=== PATIENT | male | born 1930 | race Asian ===

== ENCOUNTER 2017-08-08 18:48 | Emergency (ER) | payer MEDICARE ==
[~2017-08-08] VITALS: Ht 160 cm; Wt 61.7 kg
[~2017-08-08 18:48] MED LIST: AUG875 PO; AZIT500T47 PO; BEN10 PO; BEN100 PO; BENZ200C38 PO; CEP500 PO; DEXT10SY2 PO; HYDR-3078 PO; PRE20 PO; VITAMINS; [UNRECOGNIZED DRUG - CODE] PO
--- NOTE | 2017-08-08 19:41 | ER Report ---
History and Physical Time Seen By MD: 19:38 Hx. of Stated Complaint: headache, no nausea or vomiting. (CHARLES HERNANDEZ [facility]-) HPI/ROS CHIEF COMPLAINT: Headache HISTORY OF PRESENT ILLNESS: This is an 87-year-old male who presents to the emergency department with his daughter for a headache. The patient states that at about 6:00 tonight he developed a "headache", however he is stating that his headache is warm bilaterally to the temporal region. He states that he's had these in the past most recently about 5 days ago. He denies sharp stabbing pain , achiness or visual changes. Patient denies chills, sore throat, nausea, vomiting, diarrhea, chest pain or shortness of breath. REVIEW OF SYSTEMS: Constitutional: No fever, no chills. Eyes: No discharge. ENT: No sore throat. Cardiovascular: No chest pain, no palpitations. Respiratory: No cough, no shortness of breath. Gastrointestinal: No abdominal pain, no vomiting. Genitourinary: No hematuria. Musculoskeletal: No back pain. Skin: No rashes. Neurological: As above. (CHARLES HERNANDEZ 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 10/23/10 Cephalexin Monohydrate (Keflex) 500 Mg Cap, 500 MG PO BID, #20 0 Refills 10/23/10 Benazepril Hcl 10 MG TAB (Benazepril Hcl 10 MG TAB) 10 Mg Tablet, 10 MG PO, 0 Refills 10/23/10 [Vitamins] No Conflict Check, 0 Refills 10/23/10 Past Medical/Surgical History Patient has a past medical and surgical history of hypertension, colon cancer, colon resection, surgery for gastrointestinal stromal tumor. (CHARLES HERNANDEZ) Reviewed Nurses Notes: Yes (CHARLES HERNANDEZ) Hx Smoking: No Hx Substance Use Disorder: No Hx Alcohol Use: No (CHARLES HERNANDEZ) Constitutional Vital Sign - Last 24 Hours 08/08/17 08/08/17 19:02 19:43 Temp 97.6 Pulse 78 Resp 20 18 B/P (MAP) 155/56 169/81 (110) Pulse Ox 93 92 O2 Delivery Room Air Room Air (RACHEL JONES MD) Physical Exam General Appearance: The patient is alert, has no immediate need for airway protection and no signs of toxicity. Eyes: Pupils equal and round no pallor or injection. EOMs intact. ENT, ears: TMs intact and pearly lcemons, landmarks noted. Nose: Inferior turbinates pink and moist no drainage. Mouth: Mucous membranes are moist. Respiratory: There are no retractions, lungs are clear to auscultation. Cardiovascular: Regular rate and rhythm, no murmurs, clicks or rubs. Gastrointestinal: Abdomen is soft and non tender, no masses, bowel sounds normal. Neurological: Alert and oriented 4. Moving all extremities. Following all commands. No focal neuro deficits. Cranial nerves II through XII intact. Skin: Warm and dry, no rashes. Musculoskeletal: Neck is supple non tender. Extremities are nontender, nonswollen and have full range of motion. DIFFERENTIAL DIAGNOSIS: After history and physical exam differential diagnosis was considered for headache including but not limited to subarachnoid hemorrhage , migraine headache, tension headache and infectious causes such as meningitis, pharyngitis and sinusitis, temporal arteritis. (CHARLES HERNANDEZ) Medical Decision Making Data Points Laboratory Hematology Test 08/08/17 20:29 Erythrocyte Sedimentation Rate 52 mm/HOUR (0-20) Chemistry Test 08/08/17 20:29 Erythrocyte Sedimentation Rate 52 mm/HOUR (0-20) (RACHEL JONES MD) ED Course/Re-evaluation ED Course The patient was admitted to home. A history of physical were obtained. Differential diagnoses were considered. An ESR was obtained and was elevated at 52. I did review these results with the patient and his daughter, and I also told him I was concerned that he could have temporal arteritis. I did start him on 60 mg of prednisone here in the ED. I also sent a prescription with the patient's pharmacy for prednisone. Patient was instructed to follow-up tomorrow with Dr. Perez for a possible biopsy. I did instruct them to practice good hand hygiene and potentially avoid the grocery store while on the prednisone as he has had a splenectomy, until he follows up with Dr. Perez. The patient and his daughter had no other questions or concerns and were discharged home. Decision to Disposition Date: Aug 08, 2017 Decision to Disposition Time: 21:52 (CHARLES HERNANDEZ) Depart Departure Latest Vital Signs Vital Signs Date Time Temp Pulse Resp B/P (MAP) Pulse Ox O2 Delivery O2 Flow Rate FiO2 08/08/17 19:43 18 169/81 (110) 92 Room Air 08/08/17 19:02 97.6 78 (RACHEL JONES MD) Impression: Primary Impression: Headache Additional Impression: Elevated erythrocyte sedimentation rate Condition: Improved Disposition: HOME OR SELF-CARE Referrals: TAMIKA RAMIREZ MD (PCP) PERFECTO GONZALES MD New Scripts Prednisone (PREDNISONE) 20 Mg Tablet 60 MG PO DAILY for 5 Days, #15 TAB Prov: CHARLES HERNANDEZ 08/08/17 Patient Instructions: Acute Headache (ED), Temporal Arteritis (ED) Additional Instructions: Drink plenty of fluids. Get plenty of rest. Follow-up with your primary care provider as indicated. Follow-up with Dr. Perez next week for a possible biopsy of the temporal artery. Take the prednisone as directed. May return to the emergency department for any other concerns or worsening symptoms. 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
[2017-08-08] MEDS ORDERED: PRED20TA6 PO (21:57)
[2017-08-08] MEDS ORDERED: predniSONE 20 MG TAB PO ONE (22:00)
[2017-08-08 22:10] VITALS: BP 159/82
== END 2017-08-08 22:18 | disposition home or self-care (01) ==
LOC: ER 19:55
DX: R51 Headache (principal); R70.0 Elevated erythrocyte sedimentation rate
CPT/HCPCS: 36415; 85651; 99283; J7512

== ENCOUNTER 2017-10-09 00:22 | Emergency (ER) | payer MEDICARE ==
[~2017-10-09 00:22] MED LIST changes: +CETI5TAB25 PO; +FLUT16SP19 NS; +IMAT400PT PO; +MULT1TAB54 PO; +MULT9LIQ2 PO; +PRED20TA6 PO; +SENN-187 PO
--- NOTE | 2017-10-09 00:37 | ER Report ---
History and Physical Time Seen By MD: 00:36 Hx. of Stated Complaint: patient checked his blood pressure at home and it was elevated (180 systolic). patient was just taken of his blood pressure medication. HPI/ROS CHIEF COMPLAINT: Hypertension HISTORY OF PRESENT ILLNESS: 87-year-old male presents ambulatory to the ER concerned about having elevated blood pressure. Before retiring to bed. He checked his blood pressure. He noted 180s over 110 range at home. He notes no headache, no blurry vision, no nausea no vomiting, no shortness of breath or chest pain. He presented to the ER to make sure he was okay. Patient's history is significant for removal of a gastric tumor back in June 2017. He 's been following up with Dr. Zavala and Dr. Harrison. Patient is undergoing treatment with Gleevec oral chemotherapy REVIEW OF SYSTEMS: Respiratory: No cough, no dyspnea. Cardiovascular: No chest pain, no palpitations. Gastrointestinal: No vomiting, no abdominal pain. Musculoskeletal: No back pain. Allergies: Coded Allergies: aspirin (Verified Allergy, Mild, RASH, 08/08/17) Uncoded Allergies: PCN (Allergy, Unknown, UNSURE, 10/23/10) Home Meds Reported Medications Multivit &Minerals/Ferrous Fum (MULTIVITAMIN LIQUID) 9 Mg/15 Ml Liquid, 1 MISC PO DAILY 09/27/17 Sennosides/Docusate Sodium (STOOL SOFTENER TABLET) 1 Each Tablet, 1 TAB PO DAILY 08/26/17 Discontinued Reported Medications Imatinib Mesylate (GLEEVEC) 400 Mg Tab, 1 TAB PO DAILY 09/18/17 Discontinued Scripts Fluticasone Prop 50 Mcg Ns (FLONASE 50 MCG NS) 16 Gm [place].susp, 2 SPRAYS NS QDAY for 30 Days, #1 BOT 4 Refills Prov:GIAN HARRISON MD 09/27/17 Reviewed Nurses Notes: Yes Old Medical Records Reviewed: Yes Hx Smoking: No Smoking Status: Never Smoker Hx Substance Use Disorder: No Hx Alcohol Use: No Constitutional Vital Sign - Last 24 Hours 10/09/17 10/09/17 10/09/17 10/09/17 00:31 00:38 00:52 01:00 Temp 97.7 Pulse 84 74 Resp 20 15 B/P (MAP) 195/92 177/86 (116) 178/97 (124) Pulse Ox 93 90 O2 Delivery Room Air 10/09/17 10/09/17 10/09/17 10/09/17 01:07 01:30 01:37 02:00 Pulse 78 68 Resp 16 13 B/P (MAP) 143/67 (92) 153/75 (101) Pulse Ox 92 93 10/09/17 10/09/17 10/09/17 02:07 02:12 02:27 Pulse 68 74 75 Resp 15 18 11 Pulse Ox 93 93 93 Physical Exam Vital signs stable, afebrile, pulse ox normal, blood pressure mildly elevated General Appearance: The patient is alert, has no immediate need for airway protection and no current signs of toxicity. No acute distress HEENT: Pupils equal and round no injection. Oropharynx without redness or exudate, mucous. Membranes are moist Respiratory: Chest is non tender, lungs are clear to auscultation. Cardiac: regular rate and rhythm Gastrointestinal: Abdomen is soft and non tender, no masses, bowel sounds normal. Musculoskeletal: Neck: Neck is supple and non tender. Extremities have full range of motion and are non tender. No edema, no calf tenderness Skin: No rashes or lesions. DIFFERENTIAL DIAGNOSIS: After history and physical exam differential diagnosis was considered for hypertension, anxiety, adverse effect of chemotherapy Medical Decision Making Data Points Result Diagram: 10/09/17 0103 10/09/17 0103 Laboratory Hematology Test 10/09/17 01:03 Red Blood Count 5.47 M/uL (4.00-5.60) Mean Corpuscular Volume 75.1 fL (80.0-96.0) Mean Corpuscular Hemoglobin 24.0 pg (26.0-33.0) Mean Corpuscular Hemoglobin Concent 32.0 g/dL (32.0-36.0) Red Cell Distribution Width 22.1 % (11.5-14.5) Mean Platelet Volume 6.5 fL (7.2-11.1) Neutrophils (%) (Auto) 51.3 % (39.4-72.5) Lymphocytes (%) (Auto) 31.0 % (17.6-49.6) Monocytes (%) (Auto) 11.4 % (4.1-12.4) Eosinophils (%) (Auto) 3.7 % (0.4-6.7) Basophils (%) (Auto) 2.6 % (0.3-1.4) Nucleated RBC Relative Count (auto) 0.1 /100WBC Neutrophils # (Auto) 2.5 K/uL (2.0-7.4) Lymphocytes # (Auto) 1.5 K/uL (1.3-3.6) Monocytes # (Auto) 0.6 K/uL (0.3-1.0) Eosinophils # (Auto) 0.2 K/uL (0.0-0.5) Basophils # (Auto) 0.1 K/uL (0.0-0.1) Nucleated RBC Absolute Count (auto) 0.00 K/uL Peripheral Blood Smear Yes Y/N Sodium Level 138 mmol/L (137-145) Potassium Level 4.4 mmol/L (3.5-5.0) Chloride Level 104 mmol/L (98-107) Carbon Dioxide Level 24 mmol/L (22-30) Blood Urea Nitrogen 22 mg/dl (9-21) Creatinine 1.30 mg/dl (0.66-1.25) Glomerular Filtration Rate Calc 52.3 Random Glucose 92 mg/dl (75-110) Calcium Level 9.0 mg/dl (8.4-10.2) Total Bilirubin 0.3 mg/dl (0.2-1.3) Aspartate Amino Transf (AST/SGOT) 24 U/L (0-35) Alanine Aminotransferase (ALT/SGPT) 33 U/L (0-56) Alkaline Phosphatase 82 U/L (0-126) Troponin I < 0.012 ng/ml Total Protein 7.6 gm/dl (6.3-8.2) Albumin 3.9 g/dl (3.5-5.0) Chemistry Test 10/09/17 01:03 White Blood Count 4.8 k/uL (4.5-11.0) Red Blood Count 5.47 M/uL (4.00-5.60) Hemoglobin 13.1 g/dL (14.0-18.0) Hematocrit 41.1 % (42.0-52.0) Mean Corpuscular Volume 75.1 fL (80.0-96.0) Mean Corpuscular Hemoglobin 24.0 pg (26.0-33.0) Mean Corpuscular Hemoglobin Concent 32.0 g/dL (32.0-36.0) Red Cell Distribution Width 22.1 % (11.5-14.5) Platelet Count 384 K/uL (150-450) Mean Platelet Volume 6.5 fL (7.2-11.1) Neutrophils (%) (Auto) 51.3 % (39.4-72.5) Lymphocytes (%) (Auto) 31.0 % (17.6-49.6) Monocytes (%) (Auto) 11.4 % (4.1-12.4) Eosinophils (%) (Auto) 3.7 % (0.4-6.7) Basophils (%) (Auto) 2.6 % (0.3-1.4) Nucleated RBC Relative Count (auto) 0.1 /100WBC Neutrophils # (Auto) 2.5 K/uL (2.0-7.4) Lymphocytes # (Auto) 1.5 K/uL (1.3-3.6) Monocytes # (Auto) 0.6 K/uL (0.3-1.0) Eosinophils # (Auto) 0.2 K/uL (0.0-0.5) Basophils # (Auto) 0.1 K/uL (0.0-0.1) Nucleated RBC Absolute Count (auto) 0.00 K/uL Peripheral Blood Smear Yes Y/N Glomerular Filtration Rate Calc 52.3 Calcium Level 9.0 mg/dl (8.4-10.2) Total Bilirubin 0.3 mg/dl (0.2-1.3) Aspartate Amino Transf (AST/SGOT) 24 U/L (0-35) Alanine Aminotransferase (ALT/SGPT) 33 U/L (0-56) Alkaline Phosphatase 82 U/L (0-126) Troponin I < 0.012 ng/ml Total Protein 7.6 gm/dl (6.3-8.2) Albumin 3.9 g/dl (3.5-5.0) EKG/Imaging EKG Interpretation 12 lead EK Rhythm: normal sinus rhythm [place]: normal QRS: normal ST segments: normal, no evidence of ischemia or dysrhythmia Imaging X-ray: Single view portable chest x-ray was obtained. I viewed the images myself on the PACS system. My interpretation of the images is: There is infiltrate and effusion in the left chest compared to previous chest film January 2017. The radiologist interpretation had no clinically significant variation from this interpretation. ED Course/Re-evaluation ED Course Patient was minute to an examination room. H&P was done. The dental diagnoses was considered. On clinical examination. Patient has no findings. His blood pressures mildly elevated. He is medicated with Norvasc 2.5 mg by mouth. On reevaluation, his blood pressures improved. Chest x-ray shows a left pleural effusion of unclear significance. Patient have recurrence of his tumor. He's advised to follow-up with Dr. Zavala, his oncologist or Dr Harrison for CT scan of his chest and further evaluation. Decision to Disposition Date: Oct 09, 2017 Decision to Disposition Time: 02:25 Depart Departure Latest Vital Signs Vital Signs Date Time Temp Pulse Resp B/P (MAP) Pulse Ox O2 Delivery O2 Flow Rate FiO2 10/09/17 02:27 75 11 93 10/09/17 02:00 153/75 (101) 10/09/17 00:31 97.7 Room Air Impression: Primary Impression: Hypertension Additional Impressions: Pleural effusion on left GIST (gastrointestinal stromal tumor), malignant Condition: Improved Disposition: HOME OR SELF-CARE Patient Instructions: Hypertension (ED), Pleural Effusion (ED) Additional Instructions: Follow-up with Dr. Quiñonez or Dr. Harrison this week. You will need a CAT scan of your chest with dye to evaluate fluid in the left chest cavity Problem Qualifiers Primary Impression: Hypertension Hypertension type: essential hypertension Qualified Codes: I10 - Essential ( primary) hypertension Additional Impressions: GIST (gastrointestinal stromal tumor), malignant Malignant gastrointestinal stromal tumor location: stomach Qualified Codes: C49.A2 - Gastrointestinal stromal tumor of stomach WEN LESLIE DO Oct 09, 2017 00:37
[2017-10-09] MEDS ORDERED: amLODIPine BESYL(*) 2.5 MG TAB PO ONE (00:50)
--- NOTE | 2017-10-09 01:07 | EKG ---
FACILITY: [facility] - [place] PATIENT NAME: JAZZY ALDRIDGE : [id number] MR: [id number] V: [id number] EXAM DATE: ORDERING PHYSICIAN: WEN LESLIE TECHNOLOGIST: SUSHIL Test Reason : CARDIAC Blood Pressure : / mmHG Vent. Rate : 078 BPM Atrial Rate : 078 BPM P-R Int : 146 ms QRS Dur : 076 ms QT Int : 364 ms P-R-T Axes : 036 001 048 degrees QTc Int : 414 ms Normal sinus rhythm Progression of R wave consistent old ant/sep [place] vs lead placement When compared with ECG of 24-JAN-2017 16:26, Relatively unchanged Confirmed by DIMITRY GUZMÁN ([id number]) on 10/09/2017 6:50:16 AM Referred By: Confirmed By:DIMITRY GUZMÁN
--- NOTE | 2017-10-09 01:28 | RADIOLOGY IMAGING REPORT ---
FACILITY: [facility] - [place] PATIENT NAME: Carlton Zee : 1930 MR: [id number] V: [id number] EXAM DATE: ORDERING PHYSICIAN: WEN LESLIE TECHNOLOGIST: Location: [facility] Patient: Carlton Zee : 1930 Visit/Account:[id number] Date of Sevice: 10/09/2017 SINGLE AP RADIOGRAPH OF THE CHEST 10/09/2017 1:00 AM. INDICATION: Chest pain. COMPARISON: 05/01/2017. FINDINGS: There is new dense opacification of the left lower lung with probable moderate volume pleural effusio n. No pneumothorax. Right lung is well expanded and clear. Heart size is likely normal. IMPRESSION: Left base consolidation/atelectasis in moderate volume pleural effusion. Underlying infe ction is a consideration. Consider follow-up at resolution to exclude other underlying lesion. Report Dictated By: Claus Johnson MD at 10/09/2017 1:20 AM Report E-Signed By: Claus Johnson MD at 10/09/2017 1:22 AM WSN:[id number]
[2017-10-09 01:30] LABS: PLATELET COUNT, AUTOMATED 384 K/uL (150-450)
[2017-10-09 02:00] VITALS: BP 153/75
== END 2017-10-09 02:35 | disposition home or self-care (01) ==
LOC: ER 00:47
DX: I10 Essential (primary) hypertension (principal); J90 Pleural effusion, not elsewhere classified; C49.A2 Gastrointestinal stromal tumor of stomach
CPT/HCPCS: 36415; 71045; 84484; 85025; 93005; 99283; A9270; 82040; 82247; 82310; 82374; 82435; 82565; 82947; 84075; 84132; 84155; 84295; 84450; 84460; 84520

== ENCOUNTER → 2017-10-18 | Outpatient (CLI) | payer MEDICARE, OTHER ==
--- NOTE | 2017-10-18 10:32 | RADIOLOGY IMAGING REPORT ---
FACILITY: [facility] - [place] PATIENT NAME: Carlton Zee : 1930 MR: [id number] V: [id number] EXAM DATE: ORDERING PHYSICIAN: GIAN HARRISON TECHNOLOGIST: Location: [facility] - [place] Patient: Carlton Zee : 1930 Visit/Account:[id number] Date of Sevice: 10/18/2017 Exam type: CHEST PA AND LAT History: Plural Effusion Comparison: October 09, 2017. Findings: The previously noted moderate left pleural effusion is partially decreased in size. There also appea rs to be partial improvement of the left basilar airspace consolidation. There is an area of discoid atelectasis in the right lung base. No evidence of a pneumothorax or pneumomediastinum. The cardia c silhouette is normal in size. IMPRESSION: 1. Partial improvement of the left pleural effusion and left basilar airspace consolidation when com pared to October 09, 2017 Discoid atelectasis in the right lung base Report Dictated By: Daisy Salmeron MD at 10/18/2017 10:25 AM Report E-Signed By: Daisy Salmeron MD at 10/18/2017 10:28 AM WSN:[email or web address]
== END ==
LOC: RAD 09:51
PROVIDERS: ATTEND Family Medicine
DX: J90 Pleural effusion, not elsewhere classified (principal); J98.11 Atelectasis
CPT/HCPCS: 71046

== ENCOUNTER 2017-11-12 15:50 | Outpatient (RCR) | payer MEDICARE ==
[2017-08-26 14:26] VITALS: BP 144/73
[2017-08-26 15:35] LABS: PLATELET COUNT, AUTOMATED 362 K/uL (150-450)
--- NOTE | 2017-08-27 21:03 | ONCOLOGY CONSULTATION ---
EVENT DATE: August 26, 2017 CHIEF COMPLAINT/REASON FOR VISIT Mr. Zee is a very pleasant 87-year-old patient of Dr. Lundberg and Dr. 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 HISTORY OF PRESENT ILLNESS Mr. 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 This was resected in the [facility], I believe on June 26, 2017. He is recovering well from surgery. No abdominal pain. His biggest complaint today is postnasal drip and significant mucus in the back of his throat, which has been a problem for many years. 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 He is doing well at this time. Unfortunately I do not have confirmation about whether or not he received appropriate vaccinations, and we will try to confirm this. He is doing well and had already researched Gleevec adjuvantly. We discussed the pros and cons of it. In his case at 87 years of age he is very concerned about side effects. Typically speaking this is well tolerated, but we can adjust the dose if needed if he experiences side effects, such as myelosuppression or edema. After excessive discussion, he would like to move forward with this therapy for three years to prevent recurrence. PAST MEDICAL/SURGICAL HISTORY 1. Arthritis. 2. Cataracts. 3. 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 4. Partial colon resection for unclear reasons in September of 1999. Do not believe it was related to cancer. SOCIAL HISTORY The patient is and has presented with his today. He has five children and presents with one of his daughters today. No alcohol use, never smoker. Remainder of the social history is unremarkable. FAMILY HISTORY Unremarkable. No significant history of cancer. MEDICATIONS 1. Zyrtec daily. 2. Multivitamin daily. REVIEW OF SYSTEMS CONSTITUTIONAL: No fevers, chills, weight change. HEENT: No headache or vision changes, hearing changes. CARDIOVASCULAR: No chest pain, dyspnea on exertion or edema. RESPIRATORY: No shortness of breath, wheeze, cough. GASTROINTESTINAL: No nausea, vomiting, diarrhea. GENITOURINARY: No dysuria or hematuria. MUSCULOSKELETAL: No weakness or joint pain. PSYCHIATRIC: No anxiety or depression. SKIN: He does have some pruritus and rash at times. No major issue today. HEMATOLOGIC: No prior history of anemia, although his blood counts have been borderline by report. ENDOCRINE: No heat or cold intolerance. NEUROLOGIC: No deficits or other concerns. The remainder of the 14-point review of systems is otherwise negative. PHYSICAL EXAMINATION VITAL SIGNS: Blood pressure 144/73, which is unusually high for him. It is normally lower. Pulse 97, respiratory rate 16, temperature 96.6 Fahrenheit, oxygen saturation 94% on room air. Height 61.5 inches, weight 62 kg. Pain 0/10 , fatigue 7/10, which he attributes to his age. HEENT: Normocephalic, atraumatic. ABDOMEN: Soft. Well healed surgical scar. No tenderness, pain, concerning lesions. EXTREMITIES: No clubbing, cyanosis or edema. The remainder of the physical exam is otherwise unremarkable. IMPRESSION AND PLAN Mr. Zee is an extremely pleasant 87-year-old gentleman with the following: Large GIST tumor, resected, required splenectomy as well. We will have my team confirm that he received his vaccinations appropriately. He is a candidate for adjuvant Gleevec and we discussed this in detail today. After discussion, he would like to pursue this therapy. We discussed side effects in detail including, but not limited to myelosuppression, nausea, vomiting, edema. Significant edema is rare, but may require dose adjustments or discontinuation. In his state we would like to have excellent tolerability if we pursue this, and we would be quick to consider dose adjustment if appropriate. I answered all of his many questions today, as well as his family. Billing: New patient, level 4. Total time 45 minutes, counseling time 30. MTDD
--- NOTE | 2017-08-28 15:05 | Pharmacy Note ---
Pharmacy Note Date Provider Notified: Aug 28, 2017 Note: Oncology Pharmacy Note: Received a phone call from [facility] Regarding Post Splenectomy Vaccination and initiation of imatinib for GIST. Upon review of outside records from [facility], the patient received the following vaccines: 07/02/17: HiB - Hiberix 07/02/17: Pneumococcal - Prevnar 13 07/02/17: Meningococcal - Bexsero 07/02/17: Influenza-- Fluarix Patient is due for 8 week doses of vaccines and will also be starting imatinib. Imatinib is an immunosuppressant and will likely decrease the immunologic response from the vaccine. Risk of not vaccinating is much higher that the risk of not seroconverting with vaccination. Per discussion with Ayaka Villatoro, GSE MECHANIC benefits of vaccination outweighs the risk of not vaccinating. Leelee Moura, PharmD, BCOP LEELEE MOURA Aug 28, 2017 15:05
--- NOTE | 2017-09-27 15:56 | Pharmacy Note ---
Pharmacy Note Date Provider Notified: Sep 26, 2017 Note: Chemotherapy Education Note: Clinical Pharmacist was asked to chief counsel patient on oral chemotherapy medication , imatinib (Gleevec) for a gastrointestinal stromal tumor. The patient was accompanied by his daughter, Joan, and his . YAMILA Tuttle was also present for the chemoeducation. The following toxicities were reviewed with the patient and his family: Bone Marrow Suppression- Imatinib may cause myelosuppression including neutropenia, anemia, and thrombocytopenia. Discussed increased risk of infection and risk of bleeding if counts drop. Discussed that a CBC will be drawn and reviewed more frequently at the beginning and then on a monthly basis. Discussed neutropenic precautions and hand washing, avoiding sick contacts, etc. General precautions were discussed. Cardiac Toxicity- Discussed increased risk of cardiotoxicity including heart failure and LVD in those with baseline risks that are elevated. Most important symptom to watch for is SOB and fluid retention. Patient was educated on when to seek emergency attention vs. calling the cancer center. Dermatologic Toxicity - Severe skin reactions may occur, rashes involving the inside of the mouth are emergencies and patient was directed to the ED if those symptoms should occur. Rashes not involving the mucosa may still be severe, but discussed importance of notifying us if a rash should develop. Fluid retention/Edema- fluid retention and edema can be severe, causing lower extremity swelling, weight gain, and SOB. Discussed when to seek emergency attention and when to call us. Encouraged monitoring of fluid status and checking weights. Nausea/Vomiting/Diarrhea - Imatinib needs to be taken with food to minimize GI irritation and promote absorption. May cause nausea/vomiting. Discussed use of anti-emetics and also the risk of possible GI perforation. Bleeding- Discussed signs and symptoms of GI bleeding and what to look for. Risks of low platelets, anemia, and other sources of blood loss. Hepatotoxicity and Nephrotoxicity- Discussed the risk of potential toxicity to the liver and kidneys, will monitor with frequent labs. Patient and family verbalized understanding of all the risks and benefits of treatment with Imatinib. Patient and his family aware that if any future questions come up that they can call. Chemotherapy/biotherapy binder was given to the patient and YAMILA Tuttle covered the contents of the binder with the patient and his family. Questions were answered and the consent for treatment was signed. Leelee Crystal, PharmD, OP LEELEE CRYSTAL Sep 27, 2017 13:26
[2017-10-21 12:01] VITALS: BP 166/78
--- NOTE | 2017-10-22 19:17 | ONCOLOGY FOLLOW UP NOTE ---
EVENT DATE: October 21, 2017 CHIEF COMPLAINT/REASON FOR VISIT Mr. Zee is a pleasant 87-year-old patient of Dr. Lundberg, Dr. Carbajal and Dr. 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 HISTORY OF PRESENT ILLNESS Mr. Zee returns. This was resected in the [facility] on June 26, 2017. Given the size, we recommend adjuvant Gleevec for a year. This is approved by his [place] through the [facility] according to the patient and his family , but he has not received it yet. They are told that they are going to receive it today. 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 We again discussed the side effects of potential with Gleevec and he is looking forward to starting it. We could treat for one to three years, and I am now more inclined to treat for one year given the patient's age and comorbidities. He was in the ER recently and had a small pleural effusion on the chest x-ray. He was improving last week. On exam today his lung exam is perfectly normal, so I do not think we need additional imaging. His biggest complaint is insomnia , which has been an ongoing issue. PAST MEDICAL/SURGICAL HISTORY 1. Arthritis. 2. Cataracts. 3. 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 4. Partial colon resection for unclear reasons in September of 1999. Do not believe it was related to cancer. SOCIAL HISTORY The patient is and has presented with his today. He has five children and presents with one of his daughters today. No alcohol use, never smoker. Remainder of the social history is unremarkable. FAMILY HISTORY Unremarkable. No significant history of cancer. MEDICATIONS 1. Zyrtec daily. 2. Multivitamin daily. REVIEW OF SYSTEMS CONSTITUTIONAL: No fevers, chills, weight change. HEENT: No headache or vision changes, hearing changes. CARDIOVASCULAR: No chest pain, dyspnea on exertion or edema. No symptoms, although he did have a recent small pleural effusion by report. RESPIRATORY: No shortness of breath, wheeze, cough. GASTROINTESTINAL: No nausea, vomiting, diarrhea. GENITOURINARY: No dysuria or hematuria. MUSCULOSKELETAL: No weakness or joint pain. PSYCHIATRIC: No anxiety or depression. SKIN: He does have some pruritus and rash at times. No major issue today. HEMATOLOGIC: No prior history of anemia, although his blood counts have been borderline by report. ENDOCRINE: No heat or cold intolerance. NEUROLOGIC: No deficits or other concerns. The remainder of the 14-point review of systems is otherwise negative. PHYSICAL EXAMINATION VITAL SIGNS: Blood pressure 166/78, pulse 74, respiratory rate 16, temperature 96.4 Fahrenheit, oxygen saturation 92% on room air. Pain 0/10, fatigue 9/10. GENERAL: In stable condition, resting comfortably in the chair. HEENT: Normocephalic, atraumatic. CARDIOVASCULAR: Regular rate and rhythm. LUNGS: Completely clear to auscultation bilaterally. No dullness at the bases. No wheezes, crackles or rales. ABDOMEN: Soft, nontender. Well healed surgical scar. No tenderness, pain, concerning lesions. EXTREMITIES: No clubbing, cyanosis or significant edema at this time. The remainder of the physical exam unremarkable. IMPRESSION AND PLAN Mr. Zee is an extremely pleasant 87-year-old gentleman with the followin. Large GIST tumor, resected, requiring splenectomy as well. Plan to start adjuvant Gleevec soon. Plan to treat for one to three years. 2. Insomnia. Follow up with Dr. Carbajal. 3. Recent pleural effusion. His exam is normal. I think this may have been due to recovery from his extensive surgery or from an infection. It appears to be resolved now. Follow up as needed for this. I answered all of their many questions today, as well as the questions of the family. Billing: New patient, level 3. Total time 30 minutes, counseling time 20. MTDD
[2017-11-05 16:04] LABS: PLATELET COUNT, AUTOMATED 368 K/uL (150-450)
[~2017-11-12 15:50] MED LIST changes: +IMAT400T2 PO
[2017-11-12 15:54] VITALS: BP 171/71
[2017-11-12 16:03] LABS: PLATELET COUNT, AUTOMATED 307 K/uL (150-450)
== END 2017-11-21 ==
LOC: SPU 15:50
PROVIDERS: ATTEND Internal Medicine
DX: D48.1 Neoplasm of uncertain behavior of connective and other soft tissue (principal); Z90.81 Acquired absence of spleen; Z98.890 Other specified postprocedural states; I10 Essential (primary) hypertension
CPT/HCPCS: 36415; 83615; 85025; G0463; 82040; 82247; 82310; 82374; 82435; 82565; 82947; 84075; 84132; 84155; 84295; 84450; 84460; 84520; 99202; 99212

== ENCOUNTER 2017-12-18 15:22 | Outpatient (RCR) | payer MEDICARE ==
[2017-12-18 15:31] VITALS: BP 154/77
--- NOTE | 2017-12-22 18:31 | ONCOLOGY FOLLOW UP NOTE ---
EVENT DATE: December 18, 2017 CHIEF COMPLAINT/REASON FOR VISIT Mr. Zee returns to discuss his GIST tumor and intolerance of Gleevec. HISTORY OF PRESENT ILLNESS Carlton returns. He tried Gleevec for four days for his large GIST tumor, but did not tolerate it. He felt unwell. We could consider reducing the dose, however , he is adamant that he would like to observe. This is very reasonable. As a result, I do think we should get periodic imaging approximately once a year. We had an extensive discussion about the pros and cons of this decision with he and is family, and after discussion they are very comfortable with this plan. PAST MEDICAL/SURGICAL HISTORY 1. Arthritis. 2. Cataracts. 3. 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 4. Partial colon resection for unclear reasons in September of 1999. Do not believe it was related to cancer. SOCIAL HISTORY The patient is and has presented with his today. He has five children and presents with one of his daughters today. No alcohol use, never smoker. Remainder of the social history is unremarkable. REVIEW OF SYSTEMS CONSTITUTIONAL: No fevers, chills, weight change. HEENT: No headache or vision changes, hearing changes. CARDIOVASCULAR: No chest pain, dyspnea on exertion or edema. No symptoms, although he did have a recent small pleural effusion by report. RESPIRATORY: No shortness of breath, wheeze, cough. GASTROINTESTINAL: No nausea, vomiting, diarrhea. GENITOURINARY: No dysuria or hematuria. MUSCULOSKELETAL: No weakness or joint pain. PSYCHIATRIC: No anxiety or depression. SKIN: He does have some pruritus and rash at times. No major issue today. HEMATOLOGIC: No prior history of anemia, although his blood counts have been borderline by report. ENDOCRINE: No heat or cold intolerance. NEUROLOGIC: No deficits or other concerns. The remainder of the 14-point review of systems is otherwise negative. PHYSICAL EXAMINATION VITAL SIGNS: Blood pressure 154/77, pulse 81, respiratory rate 16, temperature 97.2 Fahrenheit, oxygen saturation 90% on room air. Weight 66.6 kg. Pain 0/10 , fatigue 0/10. GENERAL: Stable condition, resting comfortably in the chair. HEENT: Severe presbycusis. Unfortunately he did not have his microphone and amplifier today. ABDOMEN: Soft, nontender. No distention that is new. lesions. EXTREMITIES: No clubbing, cyanosis or edema. The remainder of the physical exam otherwise deferred or unremarkable, and time spent in counseling and coordination of care. . IMPRESSION AND PLAN Mr. Zee is a very pleasant gentleman with the following: A large gastrointestinal stromal tumor. We recommended adjuvant Gleevec therapy and he took four days of it. Unfortunately he felt generally unwell and decided to discontinue it. This is reasonable. I stressed to him that it is his decision whether or not he pursues adjuvant therapy, and he has decided that he would no longer like to do this. We will begin active surveillance and I would like to get scans approximately once a year. I answered all of their questions today. Billing: Return visit level 3. Total time 20 minutes, counseling time 15. MTDD
== END 2018-02-13 13:45 | disposition home or self-care (01) ==
LOC: ONC 15:22
PROVIDERS: ATTEND Internal Medicine
DX: C49.A0 Gastrointestinal stromal tumor, unspecified site (principal); Z90.81 Acquired absence of spleen
CPT/HCPCS: 99212

== ENCOUNTER → 2018-01-06 | Outpatient (CLI) | payer OTHER, MEDICARE ==
--- NOTE | 2018-01-06 12:31 | RADIOLOGY IMAGING REPORT ---
FACILITY: [facility] - [place] PATIENT NAME: Carlton Zee : 1930 MR: [id number] V: [id number] EXAM DATE: ORDERING PHYSICIAN: GIAN HARRISON TECHNOLOGIST: Location: [facility] - [place] Patient: Carlton Zee : 1930 Visit/Account:[id number] Date of Sevice: 01/06/2018 Exam type: CHEST PA AND LAT History: fu effusion Comparison: October 18, 2017. Findings: There has been slight decrease in the blunting of left costophrenic angle likely related to the repor tate left pleural effusion. There is also been partial improvement of the left basilar airspace conso lidation. Small amount of scarring is seen in the medial right lung base. There is no evidence of p neumothorax. The cardiac silhouette is normal in size. IMPRESSION: 1. Slight decrease in the left pleural effusion and left basilar airspace consolidation Report Dictated By: Daisy Salmeron MD at 01/06/2018 12:25 PM Report E-Signed By: Daisy Salmeron MD at 01/06/2018 12:27 PM WSN:[email or web address]
== END ==
LOC: RAD 10:40
PROVIDERS: ATTEND Family Medicine
DX: J90 Pleural effusion, not elsewhere classified (principal)
CPT/HCPCS: 71046

== ENCOUNTER → 2018-06-16 | Outpatient (CLI) | payer MEDICARE ==
--- NOTE | 2018-06-16 09:49 | RADIOLOGY IMAGING REPORT ---
FACILITY: [facility] PATIENT NAME: Carlton Zee : 1930 MR: [id number] V: [id number] EXAM DATE: ORDERING PHYSICIAN: EVERARDO MEDINA TECHNOLOGIST: Location: [facility] - [place], [place] Patient: Carlton Zee : 1930 Visit/Account:[id number] Date of Sevice: 06/16/2018 ABDOMEN COMPLETE HISTORY: ABDOMEN COMPLETE HISTORY: ADDITIONAL HISTORY: Neoplasm removed 06/26/2017. COMPARISON: None. FINDINGS: Gallbladder: Shadowing gallstones. Gallbladder wall is mildly thickened at 3.4 mm. No pericholecyst ic fluid collections. Liver: 11.4 cm. No liver lesions. Common duct: Normal, 1.4 mm diameter. Pancreas: Obscured Spleen: Postsplenectomy Right kidney: 8.9 x 4.7 x 4.8 cm in size. Subcentimeter cyst. Left Kidney: 10.7 x 4.5 x 4.0 cm in size. Subcentimeter cyst. Upper abdominal aorta and IVC: Patent. Ascites: None visualized. IMPRESSION: 1. Cholelithiasis. No evidence of cholecystitis Report Dictated By: Jan Aragon MD at 06/16/2018 9:38 AM Report E-Signed By: Jan Aragon MD at 06/16/2018 9:45 AM WSN:[email or web address]
== END ==
LOC: US 07:46
PROVIDERS: ATTEND Internal Medicine
DX: C49.4 Malignant neoplasm of connective and soft tissue of abdomen (principal); K80.80 Other cholelithiasis without obstruction
CPT/HCPCS: 76700

== ENCOUNTER 2018-07-07 10:01 | Outpatient (RCR) | payer MEDICARE ==
[2018-07-07 15:43] VITALS: BP 170/74
[2018-07-07 16:27] LABS: PLATELET COUNT, AUTOMATED 293 K/uL (150-450)
--- NOTE | 2018-07-10 19:52 | ONCOLOGY FOLLOW UP NOTE ---
EVENT DATE: July 10, 2018 CHIEF COMPLAINT Followup for GIST tumor. HISTORY OF PRESENT ILLNESS Patient is an 88-year-old male who was seen today in six-month followup for GIST. Unfortunately, he was not able to tolerate GLEEVEC and has felt much better off the medication. Most recent ultrasound of the abdomen was negative. He generally feels well. His biggest complaint today is that of constipation. He is caring for his , who has been diagnosed with Alzheimer disease, but feels he is managing fairly well with the help of his daughter. ONCOLOGY HISTORY Patient was diagnosed with a large GIST in June 2017. He underwent resection as well as splenectomy as the tumor was attached to the spleen. He had a short course of GLEEVEC, but was not able to tolerate the medication. PAST MEDICAL HISTORY 1. Large GIST, June 2017. 2. Arthritis. 3. Cataracts. SURGICAL HISTORY 1. GIST resection as well as splenectomy, June 2017. 2. Partial colon resection for unclear reasons, September 1999. FAMILY HISTORY Negative for malignancy. SOCIAL HISTORY Patient is . They have five grown children. His daughter lives close and helps with them. His has recently been diagnosed with Alzheimer disease. He does not drink alcohol and has never smoked. ALLERGIES ASPIRIN and PENICILLIN. MEDICATIONS 1. Multivitamin. 2. Stool softener. REVIEW OF SYSTEMS A 12-point review of systems is performed and is negative except as stated above. PHYSICAL EXAMINATION VITAL SIGNS: Blood pressure 170/74, pulse 76, respirations 16, temp 97.8, O2 sat 93%. GENERAL: Patient is a well-developed, well-nourished male in no acute distress. HEAD: Normocephalic, atraumatic. EYES: Sclerae anicteric. MOUTH: Moist mucous membranes. No lesions. NECK: Supple. No palpable adenopathy. LUNGS: Clear bilaterally. CARDIOVASCULAR: Heart rate regular, 76 per minute, without murmur, S3, or S4. ABDOMEN: Soft, nontender, with hypoactive bowel sounds. No organomegaly. EXTREMITIES: Mild bilateral lower extremity edema. NEUROLOGIC: Nonfocal. LABORATORIES CBC today reveals a WBC of 5.0, hemoglobin 16.9, hematocrit 50.7, platelets 293,000. CMP is within normal limits. IMPRESSION AND PLAN The patient is an 88-year-old male who was diagnosed with a large gastrointestinal stromal tumor in June 2017. Underwent resection as well as splenectomy as the tumor was attached to the spleen. Unable to take adjuvant GLEEVEC therapy. 1. Gastrointestinal stromal tumor. No signs or symptoms disease recurrence. He generally feels well. He underwent ultrasound of the abdomen on 06/16/18, which was negative for recurrent disease. 2. Constipation. Complains of constipation despite the use of stool softener. Recommended MiraLAX. 3. Follow up in six months for continued care. CBC and CMP will be done before that visit. MTDD
== END 2018-08-25 12:42 | disposition home or self-care (01) ==
LOC: ONC 10:01
PROVIDERS: ATTEND Internal Medicine
DX: C49.A0 Gastrointestinal stromal tumor, unspecified site (principal); Z90.81 Acquired absence of spleen; K59.00 Constipation, unspecified
CPT/HCPCS: 36415; 85025; G0463; 82040; 82247; 82310; 82374; 82435; 82565; 82947; 84075; 84132; 84155; 84295; 84450; 84460; 84520; 99212

== ENCOUNTER 2019-01-05 14:56 | Outpatient (RCR) | payer MEDICARE ==
[2019-01-02 08:30] LABS: PLATELET COUNT, AUTOMATED 297 K/uL (150-450)
[2019-01-02 08:56] VITALS: BP 148/90
[2019-01-05 15:10] VITALS: BP 154/78
--- NOTE | 2019-01-06 11:21 | [facility] ONCOLOGY NOTE ---
EVENT DATE: January 05, 2019 CHIEF COMPLAINT/REASON FOR VISIT Mr. Zee is a pleasant 88-year old gentleman with a history of a large GIST tumor, here for followup. HISTORY OF PRESENT ILLNESS Mr. Zee returns. He has been unable to tolerate Gleevec and feels much better off the medication. We did an ultrasound last year, which was negative. He generally feels well. His biggest complaint remains to be constipation, which he takes stool softener for this. With the stool softener, he has increased saliva production, but this is livable. He continues to care for his , who was diagnosed with Alzheimer's disease, and he is managing well with the help of his daughters. No significant changes. No concerning findings on exam or history today. No evidence of relapse. ONCOLOGY HISTORY Patient was diagnosed with a large GIST in June 2017. He underwent resection as well as splenectomy as the tumor was attached to the spleen. He had a short course of GLEEVEC, but was not able to tolerate the medication. PAST MEDICAL HISTORY 1. Large GIST, June 2017. 2. Arthritis. 3. Cataracts. SURGICAL HISTORY 1. GIST resection as well as splenectomy, June 2017. 2. Partial colon resection for unclear reasons, September 1999. FAMILY HISTORY Negative for malignancy. SOCIAL HISTORY Patient is . They have five grown children. His daughter lives close and helps with them. His has recently been diagnosed with Alzheimer disease. He does not drink alcohol and has never smoked. ALLERGIES ASPIRIN and PENICILLIN. MEDICATIONS 1. Multivitamin. 2. Stool softener. REVIEW OF SYSTEMS CONSTITUTIONAL: No fevers or chills. HEENT: No headache or vision changes. Positive presbycusis and has two hearing aids. ENDOCRINE: No head or cold intolerance. PSYCHIATRIC: No anxiety or depression. CARDIOVASCULAR: No chest pain, dyspnea on exertion, edema. RESPIRATORY: No shortness of breath, wheeze or cough. GI: Positive constipation. : No dysuria or hematuria. HEMATOLOGIC: No bruising or bleeding. Remainder of 14-point review of systems otherwise negative. PHYSICAL EXAMINATION VITAL SIGNS: Blood pressure 154/78. [facility] We advised him of this. Pulse 88, respiratory rate 16, temperature 98.4 Fahrenheit, oxygen saturation 93% on room air. Weight 62.6 kg. Pain 0/10, fatigue 0/10. GENERAL: Stable condition, resting comfortably in the chair. HEAD: Normocephalic, atraumatic. CARDIOVASCULAR: Regular rate and rhythm. LUNGS: Clear to auscultation bilaterally. ABDOMEN: Soft, nontender, nondistended. EXTREMITIES: No clubbing, cyanosis or significant edema. Remainder of physical exam otherwise unremarkable. IMPRESSION/REPORT/PLAN Mr. Zee is a pleasant 88-year-old gentleman with the followin. Large gastrointestinal stromal tumor. Attempted to utilize adjuvant Gleevec but did not tolerate it. He did have resection of the tumor as well as splenectomy as the tumor was attached to the spleen. Ultrasound in May 2018 was negative for recurrent disease and would like to get an ultrasound or CT approximately annually. 2. Constipation. Uses a stool softener. Can use MiraLAX as needed. 3. Should follow up every six months with labs. Would like to get imaging with an ultrasound approximately once a year. LUZ
== END 2019-01-14 15:46 | disposition home or self-care (01) ==
LOC: ONC 14:56
PROVIDERS: ATTEND Internal Medicine
DX: Z85.00 Personal history of malignant neoplasm of unspecified digestive organ (principal); K59.00 Constipation, unspecified; Z92.21 Personal history of antineoplastic chemotherapy
CPT/HCPCS: 36415; 85025; G0463; 82040; 82247; 82310; 82374; 82435; 82565; 82947; 84075; 84132; 84155; 84295; 84450; 84460; 84520; 99212